=== PATIENT | female | born 1970 | race Caucasian/White ===

== ENCOUNTER → 2016-12-08 | Outpatient (CLI) | payer BC | LOC: FIMAGING 09:42 | PROVIDERS: ATTEND Family Medicine | DX: Z12.31 Encounter for screening mammogram for malignant neoplasm of breast (principal) | CPT/HCPCS: G0202 ==

== ENCOUNTER → 2017-10-23 | Outpatient (CLI) | payer BC | LOC: BMCIMAGING 09:25 | PROVIDERS: ATTEND Podiatrist Foot & Ankle Surgery | DX: M19.072 Primary osteoarthritis, left ankle and foot (principal); M79.671 Pain in right foot ==

== ENCOUNTER → 2017-10-30 | Outpatient (CLI) | payer BC | LOC: BMCIMAGING 11:44 | PROVIDERS: ATTEND Podiatrist Foot & Ankle Surgery | DX: Z09 Encounter for follow-up examination after completed treatment for conditions other than malignant neoplasm (principal); Z98.890 Other specified postprocedural states ==

== ENCOUNTER → 2017-12-06 | Outpatient (CLI) | payer BC | LOC: BMCIMAGING 11:07 | PROVIDERS: ATTEND Podiatrist Foot & Ankle Surgery | DX: Z47.89 Encounter for other orthopedic aftercare (principal); R22.41 Localized swelling, mass and lump, right lower limb; Z98.890 Other specified postprocedural states ==

== ENCOUNTER → 2018-05-08 | Outpatient (CLI) | payer BC | LOC: FIMAGING 12-10 13:23 | PROVIDERS: ATTEND Family Medicine | DX: Z12.31 Encounter for screening mammogram for malignant neoplasm of breast (principal) ==